=== PATIENT | female | born 1950 | race Two or more races ===

== ENCOUNTER → 2019-05-08 | Outpatient (CLI) | payer OTHER | END | disposition home or self-care (01) | LOC: SONOGRAMA 07:42 | DX: R22.2 Localized swelling, mass and lump, trunk (principal) ==

== ENCOUNTER 2019-06-26 07:26 | Outpatient (CLI) | payer OTHER | END 2019-06-26 07:29 | disposition home or self-care (01) | LOC: SONOGRAMA 07:26 | DX: R22.2 Localized swelling, mass and lump, trunk (principal) ==